=== PATIENT | female | born 1975 | race Hispanic/Latino ===

== ENCOUNTER 2018-10-07 07:58 | Day surgery (SDC) | payer MEDICAID ==
[~2018-10-07 07:58] MED LIST: ANCEF/STERILE WATER 2 GM/20 ML IV NR
--- NOTE | 2018-10-07 08:58 | Anesthesia Consultation ---
Anesthesia Consult and Med Hx - Airway Anesthetic Teeth Evaluation: Good ROM Head & Neck: Adequate Mental/Hyoid Distance: Adequate Mallampati Class: Class II Intubation Access Assessment: Good - Pulmonary Exam CTA: Yes - Cardiac Exam Cardiac Exam: RRR - Pre-Operative Health Status ASA Pre-Surgery Classification: ASA2 Proposed Anesthetic Plan: General (Pt with hx of smoking tobacco and marijuanan for GA for lithotripsy ) - Pulmonary Hx Smoking: Yes (1/4 PPD X 10 YRS) Hx Sleep Apnea: No (TONNY PRE SCREEN NEGATIVE) - Cardiovascular System Hx Hypertension: No Hx Heart Murmur: Yes (CAUSES NO PROBLEMS) - Central Nervous System Hx Back Pain: Yes (FROM STONE) - Other Systems Hx Substance Use: Yes (MARIJUANA 2-3 X WEEK) Hx Cancer: No
[2018-10-07] MEDS ORDERED: ZOFRAN IV PRN (08:59)
[2018-10-07] MEDS ORDERED: DILAUDID IV PRN (08:59)
--- NOTE | 2018-10-07 08:59 | Anesthesia Day of Surgery ---
Anesthesia Day of Surgery - Day of Surgery Patient Examined: Yes Patient H&P Reviewed: Yes Patient is NPO: Yes
[2018-10-07] MEDS ORDERED: LACTATED RINGERS 1,000 ML IV SCH (09:00)
[2018-10-07] MEDS ORDERED: VERSED IV NR (09:00)
[2018-10-07] MEDS ORDERED: SUBLIMAZE IV NR ×2 (09:00→09:15)
[2018-10-07] MEDS ORDERED: DIPRIVAN 10 MG/ML IV ONE (10:33)
[2018-10-07] MEDS ORDERED: SUBLIMAZE ONE (10:33)
[2018-10-07] MEDS ORDERED: DECADRON ONE (10:58)
[2018-10-07] MEDS ORDERED: ZOFRAN ONE (10:58)
[2018-10-07] MEDS ORDERED: XYLOCAINE MPF 2% ONE (10:58)
--- NOTE | 2018-10-07 11:30 | Short Stay Summary ---
Short Stay Documentation Date of service: 10/07/18 - History H&P: obtained from office - Allergies and Medications Current Medications: Allergies No Known Allergies Allergy (Verified 08/12/18 17:49) Home Medications Medication Instructions Recorded Confirmed Last Taken Type HYDROcodone/ACETAMINOPHEN [[place] 1 each PO Q6H PRN #12 tablet 08/12/18 09/28/18 Unknown Rx 7.5-325 Tablet] Sulfamethoxazole/Trimethoprim 1 each PO BID 09/28/18 09/28/18 Unknown History [Bactrim DS TAB] traMADol [Ultram] 50 mg PO Q4HR PRN 09/28/18 09/28/18 Unknown History Active Medications Cefazolin Sodium (Ancef/Sterile Water 2 Gm/20 Ml) 2 gm IV PREOP NR Stop: 10/07/18 23:59 Hydromorphone HCl (Dilaudid) 0.5 mg IV Q10MIN PRN PRN Reason: Pain , Severe (7-10) Stop: 10/07/18 16:00 Lactated Ringer's (Lactated Ringers) 1,000 mls @ 100 mls/hr IV DIRECT ANJANA Last Admin: 10/07/18 09:15 Dose: 100 mls/hr Documented by: Midazolam HCl (Versed) 2 mg IV ONCE NR Stop: 10/07/18 20:00 Last Admin: 10/07/18 09:20 Dose: 2 mg Documented by: Ondansetron HCl (Zofran) 4 mg IV ONCE PRN PRN Reason: Nausea And Vomiting Stop: 10/07/18 16:00 - Brief post op/procedure progress note Date of procedure: 10/07/18 Pre-op diagnosis: rt renal stone 8mm Post-op diagnosis: same Procedure: ESWL Surgeon: ABILIO FIGUEROA Estimated blood loss: none Pathology: none Condition: stable - Hospital course Hospital course: ultram, norco, post op info on chart - Disposition Condition at discharge: Stable Disposition: DC-01 TO HOME OR SELFCARE Short Stay Discharge Plan Follow up with: RUSLAN ROSENBAUM MD [Primary Care Provider] - 7 Days
[2018-10-07 12:27] VITALS: BP 140/90
--- NOTE | 2018-10-07 13:51 | Operative Report ---
PREOPERATIVE DIAGNOSES: Right renal stone with colic, bilateral medullary nephrocalcinosis. POSTOPERATIVE DIAGNOSES: Right renal stone with colic, bilateral medullary nephrocalcinosis. PROCEDURE: Right extracorporal shock wave lithotripsy. SURGEON: Isac Brown MD ANESTHESIA: General. ESTIMATED BLOOD LOSS: Minimal. FLUIDS: Crystalloid. COMPLICATIONS: No complications. INDICATIONS: This patient is a 41-year-old female with long history of stones. She had a recent lithotripsy in 06/[address] Barrett in our group. Recent CT abdomen and pelvis in August revealed a 7 mm right stone with multiple calcifications in the kidneys. She presents now for surgical intervention. She knows she will need a metabolic workup in the future. DESCRIPTION OF PROCEDURE: The patient was taken to the operative suite, placed in a supine position. After adequate general anesthesia, she was placed in a supine position. The stone was localized in 2 planes using fluoroscopy. Extracorporal shock wave lithotripsy was administered with a maximum kV of 8 and 2500 shocks. A 5-minute renal pause after 200 shocks was performed. The patient tolerated the procedure well. She was extubated and taken to recovery room to go home on [employer] and follow up in the office. JOB# [id number] [facility]
--- NOTE | 2018-10-07 17:34 | Post Anesthesia Evaluation ---
- Post Anesthesia Evaluation Patient Participated: Yes Airway Patent: Yes Stable Respiratory Function: Yes Nausea/Vomiting: No Temp > 96.8F: Yes Pain Manageable: Yes Adequeate Hydration: Yes Anesthesia Complications: No Block Receding Appropriately: Not Applicable Patient on Ventilator: No
== END 2018-10-07 07:59 | disposition home or self-care (01) ==
LOC: OR 07:58
PROVIDERS: ATTEND Urology
DX: N20.0 Calculus of kidney (principal); F17.210 Nicotine dependence, cigarettes, uncomplicated; Z98.51 Tubal ligation status; Z98.890 Other specified postprocedural states; Z87.440 Personal history of urinary (tract) infections; Z79.899 Other long term (current) drug therapy
CPT/HCPCS: 50590; J0690; J1100; J2250; J2405; J2704; J3010; J7120

== ENCOUNTER 2019-05-01 15:34 | Emergency (ER) | payer MEDICAID ==
[2019-05-01 15:40] VITALS: BP 196/99
--- NOTE | 2019-05-01 15:41 | Emergency Department Report ---
Blank Doc - Documentation Documentation: 43-year-old female that presents with flank pain w/ hx of kidney stones. This initial assessment/diagnostic orders/clinical plan/treatment(s) is/are subject to change based on patient's health status, clinical progression and re- assessment by fellow clinical providers in the ED. Further treatment and workup at subsequent clinical providers discretion. Patient/guardians urged not to elope from the ED as their condition may be serious if not clinically assessed and managed. Initial orders include: 1- Patient sent to [facility] for further evaluation and treatment 2- UA
[2019-05-01] MEDS ORDERED: ONDANSETRON 4 MG/2 ML INJ IV ONE (16:22)
[2019-05-01] MEDS ORDERED: KETOROLAC 30 MG/1 ML INJ IV ONE (16:22)
[2019-05-01] MEDS ORDERED: SODIUM CHLORIDE 0.9% 1000 ML 1,000 ML IV ONE (16:22)
[2019-05-01 16:25] LABS: Bilirubin,Urine NEG (Negative); Blood,Urine SM (Negative); Color,Urine Yellow (Yellow); Mucus,Urine FEW /HPF; Protein,Urine <15 mg/dL mg/dL (Negative)
[2019-05-01 16:26] LABS: HCG Qualitative,Urine Negative (Negative)
[2019-05-01 16:44] LABS: Basophils # (Auto) 0.1 K/mm3 (0.0-0.1); Basophils % (Auto) 0.8 % (0.0-1.8); Eosinophils # (Auto) 0.1 K/mm3 (0.0-0.4); Eosinophils % (Auto) 0.9 % (0.0-4.3); Hematocrit 39.4 % (30.3-42.9); Hemoglobin 13.4 gm/dl (10.1-14.3); Lymphocytes # (Auto) 2.8 K/mm3 (1.2-5.4); Lymphocytes % (Auto) 35.6 % (13.4-35.0); Mean Corpuscular HGB Conc 34 % (30-34); Mean Corpuscular Volume 91 fl (79-97); Monocytes # (Auto) 0.6 K/mm3 (0.0-0.8); Monocytes % (Auto) 8.3 % (0.0-7.3); Platelet Count 254 K/mm3 (140-440); Red Blood Count 4.33 M/mm3 (3.65-5.03); Red Cell Distribution Width 13.6 % (13.2-15.2)
[2019-05-01 17:03] LABS: BUN/Creatinine Ratio 13; Blood Urea Nitrogen 13 mg/dL (7-17); Calcium 8.8 mg/dL (8.4-10.2); Hemolysis Index 9
--- NOTE | 2019-05-01 17:51 | Emergency Department Report ---
ED Abdominal Pain HPI - General Chief Complaint: Abdominal Pain Stated Complaint: FLANK PAIN Time Seen by Provider: 05/01/19 15:40 Source: patient Mode of arrival: Ambulatory Limitations: No Limitations - History of Present Illness Initial Comments: tHis is a 43-year-old female who presents to ED complaining of right-sided flank pain for the past 3- 4 days. Patient states that she has a history of kidney stones in the past. Patient does have a history of lithotripsy which was done last year. Patient admits mild dysuria and nausea. She denies chest pain, shortness of breath, fever, diarrhea MD Complaint: abdominal pain Severity scale (0 -10): 0 - Related Data Home Medications Medication Instructions Recorded Confirmed Last Taken Sulfamethoxazole/Trimethoprim 1 each PO BID 09/28/18 09/28/18 Unknown [Bactrim DS TAB] traMADoL [Ultram] 50 mg PO Q4HR PRN 09/28/18 09/28/18 Unknown Previous Rx's Medication Instructions Recorded Last Taken Type HYDROcodone/ACETAMINOPHEN [[place] 1 each PO Q6H PRN #12 tablet 08/12/18 Unknown Rx 7.5-325 Tablet] Ibuprofen [Motrin] 800 mg PO Q8HR #30 tablet 05/01/19 Unknown Rx traMADoL [Ultram 50 MG tab] 50 mg PO Q6HR PRN #20 tablet 05/01/19 Unknown Rx Allergies Allergy/AdvReac Type Severity Reaction Status Date / Time No Known Allergies Allergy Verified 08/12/18 17:49 ED Review of Systems ROS: Stated complaint: FLANK PAIN Other details as noted in HPI ED Past Medical Hx - Past Medical History Previous Medical History?: Yes Hx Hypertension: No Hx Kidney Stones: Yes Hx HIV: No - Surgical History Past Surgical History?: Yes Additional Surgical History: Lithotripsy 2016, 2019, Tubaligation - Social History Smoking Status: Current Every Day Smoker Substance Use Type: Alcohol, Marijuana - Medications Home Medications: Home Medications Medication Instructions Recorded Confirmed Last Taken Type HYDROcodone/ACETAMINOPHEN [[place] 1 each PO Q6H PRN #12 tablet 08/12/18 09/28/18 Unknown Rx 7.5-325 Tablet] Sulfamethoxazole/Trimethoprim 1 each PO BID 09/28/18 09/28/18 Unknown History [Bactrim DS TAB] traMADoL [Ultram] 50 mg PO Q4HR PRN 09/28/18 09/28/18 Unknown History Ibuprofen [Motrin] 800 mg PO Q8HR #30 tablet 05/01/19 Unknown Rx traMADoL [Ultram 50 MG tab] 50 mg PO Q6HR PRN #20 tablet 05/01/19 Unknown Rx ED Physical Exam - General Limitations: No Limitations ED Course Vital Signs 05/01/19 15:34 Temperature 98.5 F Pulse Rate 75 Respiratory 18 Rate Blood Pressure 196/99 O2 Sat by Pulse 100 Oximetry ED Medical Decision Making - Lab Data Result diagrams: 05/01/19 16:28 05/01/19 16:28 Laboratory Last Values WBC 7.8 K/mm3 (4.5-11.0) 05/01/19 16:28 RBC 4.33 M/mm3 (3.65-5.03) 05/01/19 16:28 Hgb 13.4 gm/dl (10.1-14.3) 05/01/19 16:28 Hct 39.4 % (30.3-42.9) 05/01/19 16:28 MCV 91 fl (79-97) 05/01/19 16:28 MCH 31 pg (28-32) 05/01/19 16:28 MCHC 34 % (30-34) 05/01/19 16:28 RDW 13.6 % (13.2-15.2) 05/01/19 16:28 Plt Count 254 K/mm3 (140-440) 05/01/19 16:28 Lymph % (Auto) 35.6 % (13.4-35.0) H 05/01/19 16:28 [place] % (Auto) 8.3 % (0.0-7.3) H 05/01/19 16:28 Eos % (Auto) 0.9 % (0.0-4.3) 05/01/19 16:28 Baso % (Auto) 0.8 % (0.0-1.8) 05/01/19 16:28 Lymph # 2.8 K/mm3 (1.2-5.4) 05/01/19 16:28 [place] # 0.6 K/mm3 (0.0-0.8) 05/01/19 16:28 Eos # 0.1 K/mm3 (0.0-0.4) 05/01/19 16:28 Baso # 0.1 K/mm3 (0.0-0.1) 05/01/19 16:28 Seg Neutrophils % 54.4 % (40.0-70.0) 05/01/19 16:28 Seg Neutrophils # 4.3 K/mm3 (1.8-7.7) 05/01/19 16:28 Sodium 140 mmol/L (137-145) 05/01/19 16:28 Potassium 3.7 mmol/L (3.6-5.0) 05/01/19 16:28 Chloride 104.7 mmol/L (98-107) 05/01/19 16:28 Carbon Dioxide 21 mmol/L (22-30) L 05/01/19 16:28 Anion Gap 18 mmol/L 05/01/19 16:28 BUN 13 mg/dL (7-17) 05/01/19 16:28 Creatinine 1.0 mg/dL (0.7-1.2) 05/01/19 16:28 Estimated GFR > 60 ml/min 05/01/19 16:28 BUN/Creatinine Ratio 13 % 05/01/19 16:28 Glucose 103 mg/dL (65-100) H 05/01/19 16:28 Calcium 8.8 mg/dL (8.4-10.2) 05/01/19 16:28 Urine Color Yellow (Yellow) 05/01/19 Unknown Urine Turbidity Clear (Clear) 05/01/19 Unknown Urine pH 5.0 (5.0-7.0) 05/01/19 Unknown Ur Specific [place] 1.025 (1.003-1.030) 05/01/19 Unknown Urine Protein <15 mg/dl mg/dL (Negative) 05/01/19 Unknown Urine Glucose (UA) Neg mg/dL (Negative) 05/01/19 Unknown Urine Ketones Neg mg/dL (Negative) 05/01/19 Unknown Urine Blood Sm (Negative) 05/01/19 Unknown Urine Nitrite Neg (Negative) 05/01/19 Unknown Urine Bilirubin Neg (Negative) 05/01/19 Unknown Urine Urobilinogen 2.0 mg/dL (<2.0) 05/01/19 Unknown Ur Leukocyte Esterase Neg (Negative) 05/01/19 Unknown Urine WBC (Auto) 1.0 /HPF (0.0-6.0) 05/01/19 Unknown Urine RBC (Auto) 2.0 /HPF (0.0-6.0) 05/01/19 Unknown U Epithel Cells (Auto) 1.0 /HPF (0-13.0) 05/01/19 Unknown Urine Mucus Few /HPF 05/01/19 Unknown Urine HCG, Qual Negative (Negative) 05/01/19 Unknown - Radiology Data Radiology results: report reviewed, image reviewed CT ABDOMEN AND PELVIS WITHOUT CONTRAST INDICATION / CLINICAL INFORMATION: right flank pain. TECHNIQUE: Axial CT images were obtained through the abdomen and pelvis without IV contrast. All CT scans at this location are performed using CT dose reduction for ALARA by means of automated exposure control. COMPARISON: CT scan 08/12/2018 FINDINGS: LOWER CHEST: No significant abnormality. LIVER: Stable hypoattenuating lesion in the right lobe of the liver. GALLBLADDER: No significant abnormality. BILE DUCTS: No significant abnormality. PANCREAS: No significant abnormality. SPLEEN: No significant abnormality. ADRENALS: No significant abnormality. RIGHT KIDNEY and URETER: Multiple nonobstructing calculi are again seen, but the largest of the previously identified calculi is no longer present. There is no hydronephrosis or perinephric stranding. Ureter is nondilated. No ureteral calculus is identified. Couple of calcifications near the course of the ureter in the pelvis were present on the previous CT scan and likely represent fluid was. LEFT KIDNEY and URETER: Multiple nonobstructing, small calculi are again seen in the kidney, similar in number and distribution to the previous scan. No hydronephrosis or perinephric stranding. The ureter is nondilated. No ureteral calculus is identified. STOMACH and SMALL BOWEL: No significant abnormality within limitations of noncontrast technique. COLON: No significant abnormality. APPENDIX: No significant abnormality. Normal appendix is seen. PERITONEUM: No free fluid. No free air. No fluid collection. LYMPH NODES: No adenopathy. AORTA and ARTERIES: No significant abnormality. IVC and VEINS: No significant abnormality. URINARY BLADDER: No significant abnormality. REPRODUCTIVE ORGANS: No significant abnormality. ADDITIONAL FINDINGS: None. SKELETAL SYSTEM: No significant abnormality. IMPRESSION: 1. Multiple nonobstructing bilateral renal calculi are again seen. The largest of the calculi seen on the comparison exam from July 2018 in the right kidney is no longer present. There is no evidence of hydroureteronephrosis. No ureteral or bladder calculus is seen. 2. Stable, indeterminate hypoattenuating lesion in the right lobe of the liver, likely a cyst or hemangioma. Signer Name: Jaime Gilliam MD Signed: 05/01/2019 5:45 PM Workstation Name: [id number] Transcribed By: VIC Dictated By: Jaime Gilliam MD Electronically Authenticated By: Jaime Gilliam MD Signed Date/Time: 05/01/19 0069 - Medical Decision Making 43 Y O FEMALE PRESENTS WITH FLANK PAIN SECONDARY TO KIDNEY STONE PT RECEIVED MEDS AND FLUIDS IN THE ED CT SCAN REPORTED ABOVE DISCUSSED WITH PT TO FOLLOW UP WITH PCP AND FORMAL SERVICE WAITER PT IN NO ACUTE DISTRESS, VSS Critical care attestation.: If time is entered above; I have spent that time in minutes in the direct care of this critically ill patient, excluding procedure time. ED Disposition Clinical Impression: Renal calculi, Flank pain Disposition: DC-01 TO HOME OR SELFCARE Is pt being admited?: No Does the pt Need Aspirin: No Condition: Stable Instructions: Kidney Stones (ED), Abdominal Pain (ED), Flank Pain (ED) Additional Instructions: Make sure to follow up with the primary care physician as discussed. Take all your medications as you've been prescribed. If you have any worsening symptoms or develop new symptoms please return to ED immediately. Prescriptions: Ibuprofen [Motrin] 800 mg PO Q8HR #30 tablet traMADoL [Ultram 50 MG tab] 50 mg PO Q6HR PRN #20 tablet PRN Reason: Pain Referrals: PRIMARY CARE, [Referring] - 3-5 Days [facility] [Provider Group] - 3-5 Days [facility] [Provider Group] - 3-5 Days Forms: Accompanied Note, Work/School Release Form(ED) Time of Disposition: 18:29
== END 2019-05-01 19:00 | disposition home or self-care (01) ==
LOC: ED 15:34
DX: N20.0 Calculus of kidney (principal); F17.200 Nicotine dependence, unspecified, uncomplicated; F12.10 Cannabis abuse, uncomplicated
CPT/HCPCS: 36415; 74176; 80048; 81001; 81025; 85025; 96374; 96375; 99284; J1885; J2405; J7030

== ENCOUNTER 2019-06-15 13:48 | Day surgery (SDC) | payer MEDICAID ==
[~2019-06-15 13:48] MED LIST changes: -ANCEF/STERILE WATER 2 GM/20 ML IV NR; +IOHEXOL 300 MG/ML 100ML IR ONE; +WATER FOR IRRIG STERILE 2000 ML IR ONE; +ceFAZolin/Water 2 GM/20 ML 2 GM/20 ML SYRINGE IV NR
[2019-06-15] MEDS ORDERED: LACTATED RINGERS 1,000 ML IV SCH (14:05)
[2019-06-15] MEDS ORDERED: fentaNYL 100 MCG/2 ML INJ IV PRN (14:21)
--- NOTE | 2019-06-15 14:24 | Anesthesia Consultation ---
Anesthesia Consult and Med Hx Date of service: 06/15/19 - Airway Anesthetic Teeth Evaluation: Good ROM Head & Neck: Adequate Mental/Hyoid Distance: Adequate Mallampati Class: Class II Intubation Access Assessment: Probably Good - Pulmonary Exam CTA: No (inspiratory wheezing, improved with cough; good air movement bilaterally) - Cardiac Exam Cardiac Exam: RRR - Pre-Operative Health Status ASA Pre-Surgery Classification: ASA2 Proposed Anesthetic Plan: General - Pulmonary Hx Smoking: Yes (current smoker 1/2 PPD) Hx Respiratory Symptoms: No Hx Sleep Apnea: No (TONNY PRE SCREEN NEGATIVE) - Cardiovascular System Hx Hypertension: No Hx Heart Attack/AMI: No Hx Percutaneous Transluminal Coronary Angioplasty (PTCA): No Hx Cardia Arrhythmia: No Hx Heart Murmur: Yes - Central Nervous System CVA: No Hx Back Pain: Yes (2/2 renal stone) - Gastrointestinal Hx Gastroesophageal Reflux Disease: No - Endocrine Hx Renal Disease: No Hx Liver Disease: No Hx Insulin Dependent Diabetes: No Hx Non-Insulin Dependent Diabetes: No Hx Thyroid Disease: No - Other Systems Hx Substance Use: Yes (MARIJUANA 2-3 X WEEK) Hx Obesity: Yes (BMI 32) - Additional Comments Anesthesia Medical History Comments: No hx anesthetic complications. Will give albuterol neb preop.
--- NOTE | 2019-06-15 14:24 | Anesthesia Day of Surgery ---
Anesthesia Day of Surgery - Day of Surgery Patient Examined: Yes Patient H&P Reviewed: Yes Patient is NPO: Yes
[2019-06-15] MEDS ORDERED: ALBUTEROL 2.5 MG/3 ML NEBU IH NR (14:30)
[2019-06-15] MEDS ORDERED: fentaNYL 100 MCG/2 ML INJ ONE (14:57)
[2019-06-15] MEDS ORDERED: PROPOFOL 200 MG/20 ML VIAL IV ONE (14:57)
[2019-06-15] MEDS ORDERED: PHENYLEPHRINE/NS 1,000 MCG/10 ML SYRINGE (OR USE) IV ONE (14:58)
[2019-06-15] MEDS ORDERED: dexAMETHasone 20 MG/5 ML VIAL ONE (14:58)
[2019-06-15] MEDS ORDERED: ONDANSETRON 4 MG/2 ML INJ ONE (14:58)
[2019-06-15] MEDS ORDERED: LIDOCAINE MPF (2%) 20 MG/1 ML VIAL 5 ML ONE (14:58)
[2019-06-15] MEDS ORDERED: MIDAZOLAM 2 MG/2 ML INJ IV NR (15:00)
--- NOTE | 2019-06-15 15:38 | Short Stay Summary ---
Short Stay Documentation Date of service: 06/15/19 - History H&P: obtained from office - Allergies and Medications Current Medications: Allergies No Known Allergies Allergy (Verified 08/12/18 17:49) Home Medications Medication Instructions Recorded Confirmed Last Taken Type HYDROcodone/ACETAMINOPHEN [[place] 1 each PO Q6H PRN #12 tablet 08/12/18 06/13/19 Unknown Rx 7.5-325 Tablet] Tamsulosin [Flomax] 0.4 mg PO QDAY 06/13/19 06/13/19 Unknown History Active Medications Albuterol (Proventil) 2.5 mg IH PREOP NR Stop: 06/15/19 23:00 Last Admin: 06/15/19 14:29 Dose: 2.5 mg Documented by: Fentanyl (Sublimaze) 50 mcg IV Q5MIN PRN PRN Reason: Pain , Severe (7-10) Stop: 06/15/19 23:59 Cefazolin Sodium (Ancef/Sterile Water 2 Gm/20 Ml) 2 gm in 20 mls @ 80 mls/hr IV PREOP NR; Protocol Stop: 06/15/19 23:59 Lactated Ringer's (Lactated Ringers) 1,000 mls @ 100 mls/hr IV DIRECT ANJANA Stop: 06/15/19 23:59 Last Admin: 06/15/19 14:25 Dose: 100 mls/hr Documented by: Midazolam HCl (Versed) 2 mg IV PREOP NR Stop: 06/15/19 23:59 Last Admin: 06/15/19 14:36 Dose: 2 mg Documented by: - Brief post op/procedure progress note Date of procedure: 06/15/19 Pre-op diagnosis: rt ureteral stone Post-op diagnosis: other (passed stone, ureteral stricture) Procedure: cysto, rpg, rt ureteroscopy, stent with external string Anesthesia: GETA Surgeon: ABILIO FIGUEROA Condition: stable - Hospital course Hospital course: bactrim, norco, post op info on chart - Disposition Condition at discharge: Stable Disposition: -01 TO HOME OR SELFCARE Short Stay Discharge Plan Follow up with: PRIMARY CARE, [Primary Care Provider] - 7 Days
--- NOTE | 2019-06-15 15:57 | Fluoroscopy Report ---
Fluoroscopy retrograde urography HISTORY: Right kidney stone FINDINGS: 33 seconds of fluoroscopy time was provided by radiology during retrograde urography by the urologist. 5 fluoroscopic images are presented. The images demonstrate normal opacification of the r enal collecting systems bilaterally. No filling defect or abnormal dilatation is demonstrated. A righ t ureteral stent was placed which is in good position on the final image. Please correlate with the p rocedural report by Dr. Brown as needed. Signer Name: Bebeto Vance Jr, MD Signed: 06/15/2019 3:52 PM Workstation Name: [id number]
--- NOTE | 2019-06-15 16:17 | Operative Report ---
PREOPERATIVE DIAGNOSIS: Right distal ureteral stone. POSTOPERATIVE DIAGNOSIS: Right distal ureteral stone, passed stone, right ureteral stricture. PROCEDURE: Cystoscopy, bilateral retrograde pyelograms, right rigid ureteroscopy, double-J stent placement (6-Bangl[place]hi 24 cm with an external string). SURGEON: Isac Brown MD ANESTHESIA: General. ESTIMATED BLOOD LOSS: Minimal. FLUIDS: Crystalloid. COMPLICATIONS: No complications. INDICATIONS: This patient is a 43-year-old female with long history of kidney stones seen by Dr. Barrett in our group in [facility]. A previous CT revealed bilateral medullary nephrocalcinosis. She has a long history of kidney stones. A 24-hour urine, which was consistent with a low citrate, which she was started on lemonade to increase her citrate. Developed another stone, which she presented. CT revealed a 4 mm distal stone. She presents now for surgical intervention. DESCRIPTION OF PROCEDURE: The patient was taken to the operative suite, placed in a supine position. After adequate general anesthesia, placed in a dorsal lithotomy position, prepped and draped in a sterile fashion. Pancystourethroscopy was performed with a 22-Bangladeshi Storz cystoscope. No bladder pathology. Bilateral retrograde pyelograms were obtained with an 8-Bangladeshi Rosa catheter and 8 mL of contrast. No filling defects or obstruction on the right. On the left, there was some narrowing of the distal ureter on the right, prompting further evaluation. Two 0.035 Glidewires were placed. Rigid ureteroscopy was performed. There was distal narrowing in several areas of the ureter consistent with stricture. The scope was able to dilate the strictures. I was able to advance into the renal pelvis and see the calices, which revealed no stones. Scope was removed. A 6-[place] 24 cm double-J stent with an external string was placed under fluoroscopic guidance. The patient tolerated the procedure well. She was extubated and taken to recovery room. She will get a prescription for [place] and Bactrim. She has Flomax, Ultram and Zofran. JOB# [id number] [facility]
[2019-06-15 16:47] VITALS: BP 127/71
== END 2019-06-15 16:40 | disposition home or self-care (01) ==
LOC: OR 13:48
PROVIDERS: ATTEND Urology
DX: N20.1 Calculus of ureter (principal); N13.5 Crossing vessel and stricture of ureter without hydronephrosis; E66.9 Obesity, unspecified; F17.210 Nicotine dependence, cigarettes, uncomplicated; Z68.32 Body mass index [BMI] 32.0-32.9, adult; Z98.51 Tubal ligation status; Z87.440 Personal history of urinary (tract) infections; Z98.890 Other specified postprocedural states; Z79.899 Other long term (current) drug therapy
CPT/HCPCS: 52332; 74420; A4217; C1758; C1769; C2617; J0690; J1100; J2250; J2370; J2405; J2704; J3010; J7120; Q9967

== ENCOUNTER 2019-10-21 15:47 | Emergency (ER) | payer MEDICAID ==
[2019-10-21 16:42] LABS: Basophils # (Auto) 0.1 K/mm3 (0.0-0.1); Basophils % (Auto) 0.9 % (0.0-1.8); Eosinophils # (Auto) 0.1 K/mm3 (0.0-0.4); Eosinophils % (Auto) 0.8 % (0.0-4.3); Lymphocytes # (Auto) 3.6 K/mm3 (1.2-5.4); Lymphocytes % (Auto) 30.9 % (13.4-35.0); Monocytes # (Auto) 0.9 K/mm3 (0.0-0.8); Monocytes % (Auto) 7.4 % (0.0-7.3)
--- NOTE | 2019-10-21 16:47 | Emergency Department Report ---
ED Female HPI - General Chief complaint: Vaginal Bleeding Stated complaint: VAGINAL BLEEDING AFTER 5YRS Time Seen by Provider: 10/21/19 16:43 Source: patient Mode of arrival: Ambulatory Limitations: No Limitations - History of Present Illness Initial comments: Mrs. Hancock is a 43-year-old female with history of kidney stone who presents with vaginal bleeding. She has not had a period in 5 years. She denies any pain. She is . She is sexually active. She has not had a Pap smear in quite some time. Denies fever. Denies abdominal pain. History of tubal ligation. Complaint: vaginal bleeding -: Gradual, days(s) (1) Severity: mild Consistency: constant Improves with: none Worsens with: none Are you Now?: No Associated Symptoms: vaginal bleeding - Related Data Home Medications Medication Instructions Recorded Confirmed Last Taken Tamsulosin [Flomax] 0.4 mg PO QDAY 06/13/19 06/13/19 Unknown Previous Rx's Medication Instructions Recorded Last Taken Type HYDROcodone/ACETAMINOPHEN [[place] 1 each PO Q6H PRN #12 tablet 08/12/18 Unknown Rx 7.5-325 Tablet] Phenazopyridine [Pyridium] 200 mg PO BID #6 tab 06/19/19 Unknown Rx Promethazine [Phenergan] 25 mg PO Q8HR PRN #15 tab 06/19/19 Unknown Rx traMADoL [Ultram] 50 mg PO Q6HR PRN #12 tablet 06/19/19 Unknown Rx Allergies Allergy/AdvReac Type Severity Reaction Status Date / Time No Known Allergies Allergy Verified 08/12/18 17:49 ED Review of Systems ROS: Stated complaint: VAGINAL BLEEDING AFTER 5YRS Other details as noted in HPI Comment: All other systems reviewed and negative Constitutional: denies: fever, malaise Cardiovascular: denies: chest pain Gastrointestinal: denies: abdominal pain, nausea, vomiting ED Past Medical Hx - Past Medical History Previous Medical History?: Yes Hx Hypertension: No Hx Heart Attack/AMI: No Hx Liver Disease: No Hx Renal Disease: No Hx Kidney Stones: Yes Hx HIV: No - Surgical History Past Surgical History?: Yes Additional Surgical History: Lithotripsy 2017, 2019, Tubaligation - Social History Smoking Status: Current Every Day Smoker Substance Use Type: None - Medications Home Medications: Home Medications Medication Instructions Recorded Confirmed Last Taken Type HYDROcodone/ACETAMINOPHEN [[place] 1 each PO Q6H PRN #12 tablet 08/12/18 06/13/19 Unknown Rx 7.5-325 Tablet] Tamsulosin [Flomax] 0.4 mg PO QDAY 06/13/19 06/13/19 Unknown History Phenazopyridine [Pyridium] 200 mg PO BID #6 tab 06/19/19 Unknown Rx Promethazine [Phenergan] 25 mg PO Q8HR PRN #15 tab 06/19/19 Unknown Rx traMADoL [Ultram] 50 mg PO Q6HR PRN #12 tablet 06/19/19 Unknown Rx ED Physical Exam - General Limitations: No Limitations General appearance: alert, in no apparent distress - Head Head exam: Present: atraumatic, normocephalic - Eye Eye exam: Present: normal appearance - ENT ENT exam: Present: mucous membranes moist - Neck Neck exam: Present: normal inspection, full ROM - Respiratory Respiratory exam: Present: normal lung sounds bilaterally. Absent: respiratory distress, wheezes, rales, rhonchi - Cardiovascular Cardiovascular Exam: Present: regular rate, normal rhythm, normal heart sounds. Absent: systolic murmur, diastolic murmur, rubs, gallop - GI/Abdominal GI/Abdominal exam: Present: soft, normal bowel sounds. Absent: distended, tenderness, guarding, rebound - Extremities Exam Extremities exam: Present: normal inspection - Neurological Exam Neurological exam: Present: alert, oriented X3 - Psychiatric Psychiatric exam: Present: normal affect, normal mood - Skin Skin exam: Present: warm, dry, intact, normal color. Absent: rash ED Medical Decision Making - Lab Data Result diagrams: 10/21/19 16:11 - Medical Decision Making Dysfunctional uterine bleeding: Painless history of tubal ligation. I strongly recommended Pap smear within the next 1 month. Also suggested possible endometrial biopsy. She understands to follow-up with pipe supervisor to which she was referred. H&H within acceptable limits. Critical care attestation.: If time is entered above; I have spent that time in minutes in the direct care of this critically ill patient, excluding procedure time. ED Disposition Clinical Impression: Dysfunctional uterine bleeding Disposition: - TO HOME OR SELFCARE Is pt being admited?: No Does the pt Need Aspirin: No Condition: Stable Instructions: Dysfunctional Uterine Bleeding (ED) Additional Instructions: Please schedule a Pap smear within the next few months. Please take this paperwork to your new pipe supervisor. You may need an endometrial biopsy. Referrals: MERARI HIGGINS MD [Staff Physician] - 3-5 Days
[2019-10-21 16:51] LABS: Bilirubin,Urine NEG (Negative); Blood,Urine LG (Negative); Color,Urine Yellow (Yellow); Mucus,Urine FEW /HPF; Protein,Urine <15 mg/dL mg/dL (Negative); Urobilinogen,Urine < 2.0 mg/dL (<2.0)
[2019-10-21 16:52] LABS: RBC,Urine > 182.0 /HPF (0.0-6.0)
[2019-10-21 16:53] LABS: Hematocrit 42.3 % (30.3-42.9); Mean Corpuscular HGB Conc 33 % (30-34); Mean Corpuscular Volume 91 fl (79-97); Platelet Count 330 K/mm3 (140-440); Red Blood Count 4.64 M/mm3 (3.65-5.03); Red Cell Distribution Width 13.4 % (13.2-15.2)
[2019-10-21 17:29] VITALS: BP 173/84
== END 2019-10-21 17:25 | disposition home or self-care (01) ==
LOC: ED 15:47
DX: N93.8 Other specified abnormal uterine and vaginal bleeding (principal); F17.200 Nicotine dependence, unspecified, uncomplicated; Z87.442 Personal history of urinary calculi; Z98.890 Other specified postprocedural states; Z79.899 Other long term (current) drug therapy; Z98.51 Tubal ligation status
CPT/HCPCS: 36415; 81001; 85025; 87086

== ENCOUNTER 2020-03-29 08:24 | Emergency (ER) | payer MEDICAID ==
[2020-03-29] MEDS ORDERED: ONDANSETRON 4 MG/2 ML INJ IV ONE (09:05)
[2020-03-29] MEDS ORDERED: fentaNYL 100 MCG/2 ML INJ IV ONE (09:05)
[2020-03-29] MEDS ORDERED: KETOROLAC 30 MG/1 ML INJ IV ONE (09:05)
[2020-03-29] MEDS ORDERED: SODIUM CHLORIDE 0.9% 1000 ML 1,000 ML IV ONE (09:06)
--- NOTE | 2020-03-29 09:11 | Emergency Department Report ---
HPI - General Chief Complaint: Back Pain/Injury Time Seen by Provider: 03/29/20 08:57 - HPI HPI: Room 23 The patient is a 44-year-old female present with a chief complaint of back pain. Patient states her symptoms began 2 days ago after leaning forward and then sneezing she developed pain in the left lower back. Patient states the pain increases with any type of movement. Patient denies dysuria or hematuria. Patient denies history of fever. Patient states she had one episode of nausea vomiting but attributed to the pain. Patient currently gives her pain a score of 10/10 ED Past Medical Hx - Past Medical History Hx GERD: Yes Hx Headaches / Migraines: Yes (MIGRAINES) Hx Kidney Stones: Yes (STENT) - Surgical History Additional Surgical History: Lithotripsy 2017, 2019, Tubaligation, ureteroscopy - Family History Family history: no significant - Social History Smoking Status: Current Every Day Smoker (1/7 pack/day) Substance Use Type: Marijuana - Medications Home Medications: Home Medications Medication Instructions Recorded Confirmed Last Taken Type HYDROcodone/ACETAMINOPHEN [[place] 1 each PO Q6H PRN #12 tablet 08/12/18 02/28/20 Unknown Rx 7.5-325 Tablet] Tamsulosin [Flomax] 0.4 mg PO QDAY 06/13/19 02/28/20 Unknown History Cyclobenzaprine [Flexeril] 10 mg PO TID PRN #10 tablet 03/29/20 Unknown Rx HYDROcodone/APAP 5-325 [[place] 1 - 2 each PO Q6HR PRN #10 tablet 03/29/20 Unknown Rx 5/325] Ibuprofen [Motrin 800 MG tab] 800 mg PO Q8HR PRN #20 tablet 03/29/20 Unknown Rx ED Review of Systems ROS: Stated complaint: LOW BACK PAIN Other details as noted in HPI Constitutional: denies: fever Eyes: denies: eye pain ENT: denies: throat pain Respiratory: no symptoms reported Cardiovascular: denies: chest pain Endocrine: no symptoms reported Gastrointestinal: nausea, vomiting. denies: abdominal pain Genitourinary: denies: dysuria, hematuria Musculoskeletal: back pain Neurological: denies: headache Physical Exam - Physical Exam Vital Signs: Vital Signs 03/29/20 08:27 Temperature 97.8 F Pulse Rate 120 H Respiratory 20 Rate Blood Pressure 186/120 O2 Sat by Pulse 99 Oximetry Physical Exam: GENERAL: The patient is well-developed well-nourished female lying on stretcher holding face appearing to be in moderate discomfort. [] HEENT: Normocephalic. Atraumatic. Extraocular motions are intact. Patient has moist mucous membranes. NECK: Supple. Trachea midline CHEST/LUNGS: Clear to auscultation. There is no respiratory distress noted. HEART/CARDIOVASCULAR: Regular. There is tachycardia. There is no gallop rub or murmur. ABDOMEN: Abdomen is soft, nontender. Patient has normal bowel sounds. There is no abdominal distention. SKIN: There is no rash. There is no edema. There is no diaphoresis. NEURO: The patient is awake, alert, and oriented. The patient is cooperative. The patient has normal speech MUSCULOSKELETAL: The patient is exquisitely tender to palpation to the left paraspinous region of the lumbar spine. ED Course Vital Signs 03/29/20 08:27 Temperature 97.8 F Pulse Rate 120 H Respiratory 20 Rate Blood Pressure 186/120 O2 Sat by Pulse 99 Oximetry ED Medical Decision Making - Lab Data Result diagrams: 03/29/20 09:14 03/29/20 09:14 Laboratory Tests 03/29/20 03/29/20 03/29/20 09:14 09:14 09:14 WBC 9.8 RBC 4.58 Hgb 14.6 H Hct 41.5 MCV 91 MCH 32 MCHC 35 H RDW 12.9 L Plt Count 295 Lymph % (Auto) 30.1 [place] % (Auto) 6.5 Eos % (Auto) 0.5 Baso % (Auto) 0.6 Lymph # (Auto) 3.0 [place] # (Auto) 0.6 Eos # (Auto) 0.0 Baso # (Auto) 0.1 Seg Neutrophils % 62.3 Seg Neutrophils # 6.1 Sodium 140 Potassium 4.3 Chloride 103.7 Carbon Dioxide 26 Anion Gap 15 BUN 10 Creatinine 0.8 Estimated GFR > 60 BUN/Creatinine Ratio 13 Glucose 99 Calcium 9.4 HCG, Qual Negative Urine Color Urine Turbidity Urine pH Ur Specific [place] Urine Protein Urine Glucose (UA) Urine Ketones Urine Blood Urine Nitrite Urine Bilirubin Urine Urobilinogen Ur Leukocyte Esterase Urine WBC (Auto) Urine RBC (Auto) U Epithel Cells (Auto) Urine Bacteria (Auto) 03/29/20 Unknown WBC RBC Hgb Hct MCV MCH MCHC RDW Plt Count Lymph % (Auto) [place] % (Auto) Eos % (Auto) Baso % (Auto) Lymph # (Auto) [place] # (Auto) Eos # (Auto) Baso # (Auto) Seg Neutrophils % Seg Neutrophils # Sodium Potassium Chloride Carbon Dioxide Anion Gap BUN Creatinine Estimated GFR BUN/Creatinine Ratio Glucose Calcium HCG, Qual Urine Color Straw Urine Turbidity Clear Urine pH 7.0 Ur Specific [place] 1.004 Urine Protein <15 mg/dl Urine Glucose (UA) Neg Urine Ketones Neg Urine Blood Sm Urine Nitrite Neg Urine Bilirubin Neg Urine Urobilinogen < 2.0 Ur Leukocyte Esterase Neg Urine WBC (Auto) < 1.0 Urine RBC (Auto) 1.0 U Epithel Cells (Auto) 5.0 Urine Bacteria (Auto) 1+ - Radiology Data Radiology results: report reviewed (CT abdomen pelvis), image reviewed (CT abdomen pelvis) [facility] [address] [id number] Cat Scan Report Signed Patient: MARQUISE GONSALEZ MR#: [id number] : 1975 Acct:[id number] Age/Sex: 44 / F ADM Date: 03/29/20 Loc: ED Attending Dr: Skye cabrera Physician: JULI GANDHI MD Date of Service: 03/29/20 Procedure(s): CT abdomen pelvis wo con Accession Number(s): [id number] cc: JULI GANDHI MD CT OF THE ABDOMEN AND PELVIS WITHOUT CONTRAST INDICATION / CLINICAL INFORMATION: Left lower back pain. TECHNIQUE: All CT scans at this location are performed using CT dose reduction for ALARA by means of automated exposure control. COMPARISON: 06/19/2019. FINDINGS: ABDOMEN: There are multiple nonobstructive calculi scattered throughout both kidneys, larger and more numerous on the right than the left. The largest calculus measures approximately 4 mm in the right lower pole. I see no evidence of hydronephrosis, perinephric soft tissue stranding or renal mass. A 2.5 cm blood pool density lesion in the dome of the right lobe of the liver posteriorly has not changed. The gallbladder, bile ducts, pancreas, spleen, adrenal glands and bowel demonstrate no significant abnormality. No adenopathy is seen. There is mild bibasilar dependent atelectasis. PELVIS: The distal ureters and urinary bladder are normal. The uterus and adnexal regions are unremarkable. A normal appendix is present and there is no evidence of diverticulitis. Radiopaque material in the cecum is likely related to ingested medication. I do not identify a hernia. There is mild lower lumbar spondylosis. IMPRESSION: 1. No acute intra-abdominal disease is identified. 2. Bilateral nonobstructive nephrolithiasis. No evidence of ureteral calculus or hydronephrosis. 3. 2.5 cm cavernous hemangioma in the right lobe of the liver is stable. Signer Name: Sydney Broussard MD Signed: 03/29/2020 11:16 AM Workstation Name: [id number] Transcribed By: RT Dictated By: Sydney Broussard MD Electronically Authenticated By: Sydney Broussard MD Signed Date/Time: 03/29/20 1116 DD/ 1108 TD/TT: - Differential Diagnosis Muscle strain, lumbar radiculopathy, renal colic, pathologic fracture Critical care attestation.: If time is entered above; I have spent that time in minutes in the direct care of this critically ill patient, excluding procedure time. ED Disposition Clinical Impression: Acute lumbar myofascial strain Disposition: DC-01 TO HOME OR SELFCARE Is pt being admited?: No Does the pt Need Aspirin: No Condition: Stable Additional Instructions: Return to the emergency department should you develop worsening symptoms, inability to tolerate food or liquids, high fever or any other concerns Prescriptions: Cyclobenzaprine [Flexeril] 10 mg PO TID PRN #10 tablet PRN Reason: Muscle Spasm Ibuprofen [Motrin 800 MG tab] 800 mg PO Q8HR PRN #20 tablet PRN Reason: Pain, Moderate (4-6) HYDROcodone/APAP 5-325 [[place] 5/325] 1 - 2 each PO Q6HR PRN #10 tablet PRN Reason: Pain Referrals: PRIMARY CARE, [Primary Care Provider] - 3-5 Days SYDNEY LESTER MD [Staff Physician] - 3-5 Days
[2020-03-29 09:22] LABS: Basophils # (Auto) 0.1 K/mm3 (0.0-0.1); Basophils % (Auto) 0.6 % (0.0-1.8); Eosinophils % (Auto) 0.5 % (0.0-4.3); Hematocrit 41.5 % (30.3-42.9); Hemoglobin 14.6 gm/dl (10.1-14.3); Lymphocytes % (Auto) 30.1 % (13.4-35.0); Mean Corpuscular HGB Conc 35 % (30-34); Mean Corpuscular Volume 91 fl (79-97); Monocytes # (Auto) 0.6 K/mm3 (0.0-0.8); Monocytes % (Auto) 6.5 % (0.0-7.3); Platelet Count 295 K/mm3 (140-440); Red Blood Count 4.58 M/mm3 (3.65-5.03); Red Cell Distribution Width 12.9 % (13.2-15.2)
[2020-03-29 09:37] LABS: Bacteria,Urine 1+ /HPF (Negative); Bilirubin,Urine NEG (Negative); Blood,Urine SM (Negative); Color,Urine Straw (Yellow); Protein,Urine <15 mg/dL mg/dL (Negative); Urobilinogen,Urine < 2.0 mg/dL (<2.0); WBC,Urine < 1.0 /HPF (0.0-6.0)
[2020-03-29 10:20] LABS: BUN/Creatinine Ratio 13; Blood Urea Nitrogen 10 mg/dL (7-17); Calcium 9.4 mg/dL (8.4-10.2); Hemolysis Index 11
--- NOTE | 2020-03-29 11:20 | Cat Scan Report ---
CT OF THE ABDOMEN AND PELVIS WITHOUT CONTRAST INDICATION / CLINICAL INFORMATION: Left lower back pain. TECHNIQUE: All CT scans at this location are performed using CT dose reduction for ALARA by means of automated e xposure control. COMPARISON: 06/19/2019. FINDINGS: ABDOMEN: There are multiple nonobstructive calculi scattered throughout both kidneys, larger and more numerous on the right than the left. The largest calculus measures approximately 4 mm in the right l ower pole. I see no evidence of hydronephrosis, perinephric soft tissue stranding or renal mass. A 2.5 cm blood pool density lesion in the dome of the right lobe of the liver posteriorly has not judy nged. The gallbladder, bile ducts, pancreas, spleen, adrenal glands and bowel demonstrate no signific ant abnormality. No adenopathy is seen. There is mild bibasilar dependent atelectasis. PELVIS: The distal ureters and urinary bladder are normal. The uterus and adnexal regions are unremar kable. A normal appendix is present and there is no evidence of diverticulitis. Radiopaque material i n the cecum is likely related to ingested medication. I do not identify a hernia. There is mild lower lumbar spondylosis. IMPRESSION: 1. No acute intra-abdominal disease is identified. 2. Bilateral nonobstructive nephrolithiasis. No evidence of ureteral calculus or hydronephrosis. 3. 2.5 cm cavernous hemangioma in the right lobe of the liver is stable. Signer Name: Oh Broussard MD Signed: 03/29/2020 11:16 AM Workstation Name: [id number]
[2020-03-29 12:01] VITALS: BP 149/92
== END 2020-03-29 12:15 | disposition home or self-care (01) ==
LOC: ED 08:24
DX: S39.012A Strain of muscle, fascia and tendon of lower back, initial encounter (principal); K21.9 Gastro-esophageal reflux disease without esophagitis; G43.909 Migraine, unspecified, not intractable, without status migrainosus; F17.200 Nicotine dependence, unspecified, uncomplicated; F12.10 Cannabis abuse, uncomplicated; Z98.51 Tubal ligation status; Z87.442 Personal history of urinary calculi; Z79.1 Long term (current) use of non-steroidal anti-inflammatories (NSAID); Z79.899 Other long term (current) drug therapy; X58.XXXA Exposure to other specified factors, initial encounter; Y93.89 Activity, other specified; Y92.89 Other specified places as the place of occurrence of the external cause; Y99.8 Other external cause status
CPT/HCPCS: 36415; 74176; 80048; 81001; 84703; 85025; 96361; 96374; 96375; 99284; J1885; J2405; J3010; J7030

== ENCOUNTER 2021-05-01 17:54 | Emergency (ER) | payer MEDICAID ==
[2021-05-01] MEDS ORDERED: ONDANSETRON 4 MG/2 ML INJ IV ONE (19:55)
[2021-05-01] MEDS ORDERED: MORPHINE 4 MG/1 ML INJ IV ONE (19:55)
[2021-05-01 19:57] VITALS: BP 175/88
--- NOTE | 2021-05-01 19:59 | Emergency Department Report ---
ED Abdominal Pain HPI - General Chief Complaint: Urogenital-Female Stated Complaint: KIDNEY PAIN Time Seen by Provider: 05/01/21 19:51 Source: patient Mode of arrival: Ambulatory Limitations: No Limitations - History of Present Illness Initial Comments: Patient is 45 years old female with history of hypertension and kidney stone. Patient presented to the ER complaining of bilateral flank pain since yesterday. Patient described her pain as sharp with no radiation. Patient denied any fever or chills. She reported nausea and vomiting. Patient denied any chest pain or shortness of breath. MD Complaint: abdominal pain, flank pain -: days(s) Location: L flank, R flank Radiation: none Migration to: no migration Severity: moderate Severity scale (0 -10): 5 Quality: sharp Associated Symptoms: nausea, vomiting - Related Data Home Medications Medication Instructions Recorded Confirmed Last Taken Tamsulosin [Flomax] 0.4 mg PO QDAY 06/13/19 02/28/20 Unknown Previous Rx's Medication Instructions Recorded Last Taken Type HYDROcodone/ACETAMINOPHEN [[place] 1 each PO Q6H PRN #12 tablet 08/12/18 Unknown Rx 7.5-325 Tablet] Cyclobenzaprine [Flexeril] 10 mg PO TID PRN #10 tablet 03/29/20 Unknown Rx HYDROcodone/APAP 5-325 [[place] 1 - 2 each PO Q6HR PRN #10 tablet 03/29/20 Unknown Rx 5/325] Ibuprofen [Motrin 800 MG tab] 800 mg PO Q8HR PRN #20 tablet 03/29/20 Unknown Rx Allergies Allergy/AdvReac Type Severity Reaction Status Date / Time No Known Allergies Allergy Verified 05/01/21 17:58 ED Review of Systems ROS: Stated complaint: KIDNEY PAIN Other details as noted in HPI Comment: All other systems reviewed and negative Constitutional: denies: chills, fever Respiratory: denies: cough, shortness of breath, SOB with exertion Cardiovascular: denies: chest pain, palpitations Gastrointestinal: abdominal pain, nausea, vomiting. denies: diarrhea, constipation, hematemesis, melena, hematochezia Musculoskeletal: back pain Neurological: denies: headache, weakness, numbness, paresthesias, confusion ED Past Medical Hx - Past Medical History Hx Hypertension: No (BP UP LATELY WITH KIDNEY PAIN 160/105 ON 02/27/20.) Hx Heart Attack/AMI: No Hx Congestive Heart Failure: No Hx Diabetes: No Hx GERD: Yes Hx Liver Disease: No Hx Renal Disease: No Hx Sickle Cell Disease: No Hx Headaches / Migraines: Yes (MIGRAINES) Hx Kidney Stones: Yes (STENT) Hx Asthma: No Hx COPD: No Hx Tuberculosis: No Hx HIV: No - Surgical History Additional Surgical History: Lithotripsy 2017, 2019, Tubaligation, ureteroscopy - Social History Smoking Status: Current Every Day Smoker (1/7 pack/day) Substance Use Type: Marijuana - Medications Home Medications: Home Medications Medication Instructions Recorded Confirmed Last Taken Type HYDROcodone/ACETAMINOPHEN [[place] 1 each PO Q6H PRN #12 tablet 08/12/18 02/28/20 Unknown Rx 7.5-325 Tablet] Tamsulosin [Flomax] 0.4 mg PO QDAY 06/13/19 02/28/20 Unknown History Cyclobenzaprine [Flexeril] 10 mg PO TID PRN #10 tablet 03/29/20 Unknown Rx HYDROcodone/APAP 5-325 [[place] 1 - 2 each PO Q6HR PRN #10 tablet 03/29/20 Unknown Rx 5/325] Ibuprofen [Motrin 800 MG tab] 800 mg PO Q8HR PRN #20 tablet 03/29/20 Unknown Rx ED Physical Exam - General Limitations: No Limitations General appearance: alert, in distress - Head Head exam: Present: atraumatic, normocephalic, normal inspection - Eye Eye exam: Present: normal appearance, PERRL - ENT ENT exam: Present: normal exam, normal orophraynx, mucous membranes moist - Neck Neck exam: Present: normal inspection, full ROM. Absent: tenderness, meningismus - Respiratory Respiratory exam: Present: normal lung sounds bilaterally - Cardiovascular Cardiovascular Exam: Present: regular rate, normal rhythm, normal heart sounds - GI/Abdominal GI/Abdominal exam: Present: soft, normal bowel sounds. Absent: distended, tenderness, guarding, rebound, rigid, organomegaly, mass, bruit, pulsatile mass, hernia - Extremities Exam Extremities exam: Present: normal inspection, full ROM, normal capillary refill. Absent: tenderness, pedal edema, joint swelling, calf tenderness - Back Exam Back exam: Present: normal inspection, full ROM, CVA tenderness (R), CVA tenderness (L). Absent: muscle spasm, paraspinal tenderness, vertebral tenderness - Neurological Exam Neurological exam: Present: alert, oriented X3, CN II-XII intact, normal gait, reflexes normal. Absent: motor sensory deficit - Psychiatric Psychiatric exam: Present: normal mood - Skin Skin exam: Present: warm, intact, normal color ED Course Vital Signs 05/01/21 05/01/21 17:58 19:56 Temperature 98.4 F 98.6 F Pulse Rate 73 65 Respiratory 20 12 Rate Blood Pressure 181/99 175/88 [Left] O2 Sat by Pulse 100 98 Oximetry ED Medical Decision Making - Lab Data Result diagrams: 05/01/21 20:04 05/01/21 20:04 - Radiology Data Radiology results: report reviewed - Medical Decision Making Patient is 45 years old female with history of hypertension and kidney stone. Patient presented to the ER complaining of bilateral flank pain since yesterday. Patient described her pain as sharp with no radiation. Patient denied any fever or chills. She reported nausea and vomiting. Patient denied any chest pain or shortness of breath. Patient received morphine and Zofran for pain. Patient stated that she is feeling much better. Labs reviewed and is unremarkable except for mild leukocytosis. CT abdomen and pelvis with IV contrast showed a 7mm kidney stone with no obstruction or hydronephrosis. Patient given prescription for tramadol and Zofran and advised to follow-up with her urologist in the next 2 to 3 days and to return to the ER if he develop any new symptoms. Critical care attestation.: If time is entered above; I have spent that time in minutes in the direct care of this critically ill patient, excluding procedure time. ED Disposition Clinical Impression: Acute abdominal pain, Kidney stone Disposition: 01 HOME / SELF CARE / HOMELESS Is pt being admited?: No Condition: Stable Instructions: Abdominal Pain, Adult, Kidney Stones, [id number] Referrals: PRIMARY CARE, [Primary Care Provider] - 3-5 Days
[2021-05-01 20:48] LABS: Basophils # (Auto) 0.1 K/mm3 (0.0-0.1); Basophils % (Auto) 0.5 % (0.0-1.8); Eosinophils # (Auto) 0.1 K/mm3 (0.0-0.4); Eosinophils % (Auto) 0.4 % (0.0-4.3); Hematocrit 43.5 % (30.3-42.9); Hemoglobin 14.1 gm/dl (10.1-14.3); Lymphocytes # (Auto) 3.3 K/mm3 (1.2-5.4); Lymphocytes % (Auto) 27.4 % (13.4-35.0); Mean Corpuscular HGB Conc 33 % (30-34); Mean Corpuscular Volume 93 fl (79-97); Monocytes % (Auto) 7.9 % (0.0-7.3); Platelet Count 283 K/mm3 (140-440); Red Blood Count 4.68 M/mm3 (3.65-5.03); Red Cell Distribution Width 13.1 % (13.2-15.2)
[2021-05-01] MEDS ORDERED: MORPHINE 2 MG/1 ML INJ IV ONE (21:00)
[2021-05-01 21:06] LABS: Alanine Aminotransferase 14 units/L (7-56); Albumin 4.7 g/dL (3.9-5); Blood Urea Nitrogen 11 mg/dL (7-17); Calcium 9.5 mg/dL (8.4-10.2); Hemolysis Index 4
[2021-05-01 21:11] LABS: BUN/Creatinine Ratio 16; Bilirubin,Direct < 0.2 mg/dL (0-0.2)
--- NOTE | 2021-05-01 22:13 | Cat Scan Report ---
CT ABDOMEN AND PELVIS WITH CONTRAST INDICATION / CLINICAL INFORMATION: Bi-Lateral flank pain with nausea and vomiting since yesterday. TECHNIQUE: Axial CT images were obtained through the abdomen and pelvis after 100 cc Omnipaque [address] scans at this location are performed using CT dose reduction for ALARA by means of automated exposure control. COMPARISON: 03/29/2020 FINDINGS: LOWER CHEST: No significant abnormality. AORTA / ARTERIES: Mild atherosclerotic calcification without acute abnormality. IVC / VEINS: No significant abnormality. LYMPH NODES: No significant adenopathy. COLON: No significant abnormality. APPENDIX: No significant abnormality. STOMACH / SMALL BOWEL: No significant abnormality. PERITONEUM: No free fluid. No free air. No fluid collection. LIVER: Within the posterior superior segment of the right hepatic lobe there is a 2.8 cm hepatic ino ngioma. GALLBLADDER: No significant abnormality. BILE DUCTS: No significant abnormality. PANCREAS: No significant abnormality. SPLEEN: No significant abnormality. ADRENALS: No significant abnormality. RIGHT KIDNEY / URETER: Right cyst. No hydronephrosis. There is a 0.7 cm stone, not significant change from previous CT. Additional stones within the right kidney are difficult to quantify secondary to c ontrast. LEFT KIDNEY / URETER: Stone burden is difficult to evaluate secondary to contrast. There is a cyst wi thin the lower pole of the right kidney. No hydronephrosis. URINARY BLADDER: No significant abnormality. REPRODUCTIVE ORGANS: No significant abnormality. SKELETAL SYSTEM: No significant abnormality. ADDITIONAL FINDINGS: None. IMPRESSION: 1. There is no hydronephrosis. Difficult to assess the stone burden given the presence of contrast. T here is redemonstration of a 7 mm stone within the right kidney which is not significant change aj red to previous CT. 2. Other findings as above Signer Name: Conrado Quintero DO Signed: 05/01/2021 10:09 PM Workstation Name: [id number]
[2021-05-01 22:43] LABS: Bilirubin,Urine NEG (Negative); Blood,Urine SM (Negative); Color,Urine Yellow (Yellow); Protein,Urine <15 mg/dL mg/dL (Negative); Urobilinogen,Urine < 2.0 mg/dL (<2.0)
== END 2021-05-02 00:28 | disposition home or self-care (01) ==
LOC: ED 17:54
DX: N20.0 Calculus of kidney (principal); K21.9 Gastro-esophageal reflux disease without esophagitis; Z79.899 Other long term (current) drug therapy
CPT/HCPCS: 36415; 74177; 80048; 80076; 81001; 83690; 84703; 85025; 96374; 96375; 99284; J2270; J2405; Q9967